=== PATIENT | male | born 1990 | race Caucasian/White ===

== ENCOUNTER 2019-11-08 14:44 | Inpatient (IN) | payer OTHER ==
--- NOTE | 2019-11-08 15:05 | BHS.RME ---
Substance Use & Tx History - Substance Use History Benzodiazepines Substance amount: Xanax 10-15 mg Frequency of use: Daily Substance route: Oral Date of Last Use: 11/07/19 Alcohol Substance amount: 2 pints Vodka Frequency of use: Daily Substance route: Oral Date of Last Use: 11/06/19 Cocaine (Crack) Substance amount: $40-80. Frequency of use: Daily Substance route: Smoking Date of Last Use: 11/07/19 Physical/Psych/Mental Status - Behavior Eye Contact: Normal - Cooperativeness Cooperativeness: Cooperative - Thinking Thought Processes: Tight Thought content: Future oriented - Physical Health Problems Is patient presently having any pain?: No Does patient presently have any injuries (include location): No Does patient currently have a fever: No Is patient : No CIWA Nausea/Vomitin-No Nausea/No Vomiting Muscle Tremors: 4-Moderate,w/Arms Extend Anxiety: 3 Agitation: 3 Paroxysmal Sweats: 1-Minimal Palms Moist Orientation: 0-Oriented Tacttile Disturbances: 0-None Auditory Disturbances: 0-None Visual Disturbances: 0-None Headache: 0-None Present CIWA-Ar Total Score: 11
[2019-11-08 17:27] VITALS: BMI 23.6
--- NOTE | 2019-11-08 17:36 | HP ---
CIWA Score Nausea/Vomitin-Mild Nausea/No Vomiting Muscle Tremors: 2 Anxiety: 3 Agitation: 3 Paroxysmal Sweats: No Perspiration Orientation: 0-Oriented Tacttile Disturbances: 0-None Auditory Disturbances: 0-None Visual Disturbances: 0-None Headache: 2-Mild CIWA-Ar Total Score: 11 - Admission Criteria OASAS Guidelines: Admission for Medically Managed Detox: Requires at least one of the followin. CIWA greater than 12 2. Seizures within the past 24 hours 3. Delirium tremens within the past 24 hours 4. Hallucinations within the past 24 hours 5. Acute intervention needed for co occurring medical disorder 6. Acute intervention needed for co occurring psychiatric disorder 7. Severe withdrawal that cannot be handled at a lower level of care (continued vomiting, continued diarrhea, abnormal vital signs) requiring intravenous medication and/or fluids 8. Admitting History and Physical - Smoking History Smoking history: Current every day smoker Have you smoked in the past 12 months: Yes Aproximately how many cigarettes per day: 10 Admission [facility] Allergies/Adverse Reactions: Allergies Allergy/AdvReac Type Severity Reaction Status Date / Time chlordiazepoxide Allergy Intermediate Hives Verified 11/08/19 17:56 [From Librium] History of Present Illness: This report was requested by: Gladis Luque | Reference #: [id number] Others' Prescriptions Patient Name: Jian Key Date: 1990 Address: [address] [place] [address] Sex: Male Rx Written Rx Dispensed Drug Quantity Days Supply Prescriber Name 03/28/2019 03/28/2019 clonazepam 2 mg tablet 10 5 Jian Arellano Patient Name: Jian Falcon Date: 1990 Address: [address] [place] [address] Sex: Male Rx Written Rx Dispensed Drug Quantity Days Supply Prescriber Name 12/12/2018 12/12/2018 oxycodone-acetaminophen 5-325 mg tablet 12 3 Isaias Castañeda DDS 28 y.o. male reports benzo use 10-15 mg/day x " months " , latest use yesterday , reports seizure if not taking xanax . mmtp x 1 year [facility] latest dose today , states program aware of pt seeking detox . cocaine : 80$ /day via smoking heroin via inhalation x 5 years , first age of use 20 - oxycodone cannabis - since age 17 etoh - since age 17 , claims 2 pints vodka / day , starts drinking in the afternoon , had seizure 1 yr ago , taken to [facility] reports Gabapentin for mmod disorder, anxiety Seroquel PMHX ;denies PSHX : denies denies SI / HI tobacco : 1/2 ppd requesting nrt w/ gum finances habit through illicit activities no children homeless , unemployed Exam Limitations: No Limitations - Review of Systems Constitutional: Loss of Appetite, Unintentional Wgt. Loss (claims 30 lbs wt loss since May 2019) EENT: reports: No Symptoms Reported Respiratory: reports: No Symptoms reported Cardiac: reports: No Symptoms Reported GI: reports: Diarrhea, Nausea, Poor Appetite, Abdominal cramping : reports: No Symptoms Reported Musculoskeletal: reports: No Symptoms Reported Integumentary: reports: No Symptoms Reported Neuro: reports: Headache Endocrine: reports: No Symptoms Reported Hematology: reports: No Symptoms Reported Psychiatric: reports: Orientated x3, Agitated, Anxious Patient History - Patient Medical History Hx Asthma: No Hx Chronic Obstructive Pulmonary Disease (COPD): No Hx Cardiac Disorders: No Hx Hypertension: No Hx Seizures: Yes (2016 r/t Benzo w/drawal) Hx Diabetes: No Hx Gastrointestinal Disorders: No Hx Genitourinary Disorders: No Hx Sexually Transmitted Disorders: No Hx Renal Disease (ESRD): No Hx Depression: Yes Hx Suicide Attempt: No Hx Schizophrenia: No - Patient Surgical History Past Surgical History: No Hx Neurologic Surgery: No Hx Cataract Extraction: No Hx Cardiac Surgery: No Hx Lung Surgery: No Hx Breast Surgery: No Hx Breast Biopsy: No Hx Abdominal Surgery: No Hx Appendectomy: No Hx Cholecystectomy: No Hx Genitourinary Surgery: No Hx Section: No Hx Orthopedic Surgery: No Anesthesia Reaction: No - PPD History Previous Implant?: Yes Documented Results: Negative w/o proof Implanted On Prior R Admission?: No - Reproductive History Patient : No - Smoking Cessation Smoking history: Current every day smoker Have you smoked in the past 12 months: Yes Aproximately how many cigarettes per day: 10 Hx Chewing Tobacco Use: No Initiated information on smoking cessation: Yes 'Breaking Loose' booklet given: 11/08/19 - Substances abused Alcohol Substance route: Oral Frequency: Daily Amount used: 2 pints of vodka Age of first use: 17 Date of last use: 11/06/19 Alprazolam (Xanax) Substance route: Oral Frequency: Daily Amount used: 10-15mg daily Age of first use: 20 Date of last use: 11/07/19 Crack Substance route: Smoking Frequency: Daily Amount used: $80/day Age of first use: 21 Date of last use: 10/31/19 Admission Physical Exam BHS - Vital Signs Vital Signs: Vital Signs - 24 hr 11/08/19 17:22 Temperature 96.7 F L Pulse Rate 76 Respiratory 16 Rate Blood Pressure 126/85 - Physical General Appearance: Yes: Mild Distress, Anxious HEENTM: Yes: EOMI, Hearing grossly Normal, Normocephalic, Normal Voice Respiratory: Yes: Chest Non-Tender, Lungs Clear, Normal Breath Sounds, No Respiratory Distress, No Accessory Muscle Use Neck: Yes: No masses,lesions,Nodules, Trachea in good position Cardiology: Yes: Regular Rhythm, Regular Rate, S1, S2 Abdominal: Yes: Non Tender, Soft Musculoskeletal: Yes: Gait Steady Extremities: Yes: Normal Range of Motion, Non-Tender Neurological: Yes: Fully Oriented, Alert, Motor Strength 5/5, Normal Mood/Affect Integumentary: Yes: Warm - Diagnostic (1) Alcohol abuse Current Visit: Yes Status: Chronic (2) Nicotine dependence Current Visit: Yes Status: Chronic (3) Opioid dependence on agonist therapy Current Visit: Yes Status: Chronic (4) Cocaine dependence Current Visit: Yes Status: Chronic Qualifiers: Substance use status: uncomplicated Qualified Code(s): F14.20 - Cocaine dependence, uncomplicated Breathalyzer - Breathalyzer Breathalyzer: 0 Urine Drug Screen - Test Device Lot number: [id number] Expiration date: 08/18/21 - Control Is test valid?: Yes - Results Drug screen NEGATIVE: No Urine drug screen results: THC-Marijuana, MARYBEL-Cocaine, MTD-Methadone Inpatient Rehab Admission - Rehab Decision to Admit Inpatient rehab admission?: No
[2019-11-08] MEDS ORDERED: BISMUTH SUBSALICYLATE 524 MG/30 ML UD PO PRN (17:43)
[2019-11-08] MEDS ORDERED: MELATONIN 5 MG TABLETS PO PRN (17:43)
[2019-11-08] MEDS ORDERED: MAG HYDROX/AL HYDROX/SIMETH 30 ML UNIT-DOSE CUP PO PRN (17:43)
[2019-11-08] MEDS ORDERED: IBUPROFEN 400 MG TABLET (FP) PO PRN (17:43)
[2019-11-08] MEDS ORDERED: MAGNESIUM HYDROX 2400MG/30ML ORAL SUSPENSION 30 ML CUP PO PRN (17:43)
[2019-11-08] MEDS ORDERED: hydrOXYzine PAMOATE 25 MG CAPSULE (FP) PO PRN (17:43)
[2019-11-08] MEDS ORDERED: METHOCARBAMOL 500 MG TABLET PO PRN (17:43)
[2019-11-08] MEDS ORDERED: MENTHOL/PHENOL 1 EACH UD MM PRN (17:43)
[2019-11-08] MEDS ORDERED: ACETAMINOPHEN 325 MG TABLET (FP) PO PRN ×2 (17:43)
[2019-11-08] MEDS ORDERED: MAGNESIUM CITRATE 300 ML BOTTLE PO PRN (17:43)
[2019-11-08] MEDS ORDERED: diazePAM 5 MG TABLET PO ONE (17:45)
[2019-11-08] MEDS: diazePAM 5 MG TABLET PO SCH (22:27)
[2019-11-08] MEDS: THIAMINE HCL 100 MG TABLET (FP) PO SCH (22:27)
[2019-11-08] MEDS: diazePAM 5 MG TABLET PO PRN (23:52)
[2019-11-09] MEDS: diazePAM 5 MG TABLET PO SCH ×3 (07:00→22:26)
[2019-11-09] MEDS ORDERED: METHADONE HCL 10 MG TABLET PO ONE (09:55)
[2019-11-09] MEDS ORDERED: METHADONE 80 MG, METHADONE 20 MG PO ONE (10:20)
[2019-11-09] MEDS: PRENATAL VITAMINS W/ FOLIC ACID TABLET (FP) PO SCH (10:23)
--- NOTE | 2019-11-09 10:23 | PN ---
[facility] CIWA - CIWA Score Nausea/Vomitin-Mild Nausea/No Vomiting Muscle Tremors: 2 Anxiety: 2 Agitation: 2 Paroxysmal Sweats: 1-Minimal Palms Moist Orientation: 0-Oriented Tacttile Disturbances: 1-Very Mild Itch/Numbness Auditory Disturbances: 0-None Visual Disturbances: 0-None Headache: 1-Very Mild CIWA-Ar Total Score: 10 BHS Progress Note (SOAP) Subjective: alert,irritable,anxious,interrupted sleep,pain in the body and back Objective: 11/09/19 10:22 Vital Signs Temperature 97.4 F L 11/09/19 08:40 Pulse Rate 64 11/09/19 08:40 Respiratory Rate 18 11/09/19 08:40 Blood Pressure 106/61 11/09/19 08:40 O2 Sat by Pulse Oximetry (%) labs pending Assessment: 11/09/19 10:22 withdrawal symptom Plan: continue detox valium regimen,mmtp 100 mgs/day,verified by RN,ordered
[2019-11-09] MEDS: diazePAM 5 MG TABLET PO PRN ×3 (10:24→20:57)
[2019-11-09] MEDS: NICOTINE POLACRILEX 2 MG GUM BUC PRN ×3 (10:24→22:30)
[2019-11-09] MEDS ORDERED: METHADONE HCL 40 MG DISPERSABLE TABLET ONE (10:25)
[2019-11-09] MEDS ORDERED: METHADONE HCL 10 MG TABLET ONE (10:25)
--- NOTE | 2019-11-09 10:36 | EKG ---
Test Reason : Blood Pressure : / mmHG Vent. Rate : 049 BPM Atrial Rate : 049 BPM P-R Int : 144 ms QRS Dur : 090 ms QT Int : 442 ms P-R-T Axes : -11 039 056 degrees QTc Int : 399 ms SINUS BRADYCARDIA INCOMPLETE RBBB NO PREVIOUS ECGS AVAILABLE Confirmed by MARLENY REESE MD ([id number]) on 11/09/2019 10:35:28 AM Referred By: BRIGETTE Confirmed By:MARLENY REESE MD
[2019-11-09 10:40] LABS: HEMATOCRIT 37.8 % (35.4-49); HEMOGLOBIN 12.8 GM/dL (11.7-16.9); MCH 28.3 pg (25.7-33.7); MCHC 33.7 g/dl (32.0-35.9); MEAN CELL VOLUME 83.9 fl (80-96); MEAN PLT VOLUME 7.9 fl (7.5-11.1); PLATELET COUNT 281 K/MM3 (134-434); RBC 4.51 M/mm3 (4.00-5.60); WHITE BLOOD COUNT 5.8 K/mm3 (4.0-10.0)
[2019-11-09 10:51] LABS: ALBUMIN 3.8 g/dl (3.4-5.0); BILIRUBIN,TOTAL 0.4 mg/dL (0.2-1); BLOOD UREA NITROGEN 16.8 mg/dL (7-18); CALCIUM 9.2 mg/dL (8.5-10.1); CREATININE 0.9 mg/dL (0.55-1.3); POTASSIUM 4.5 mmol/L (3.5-5.1); TOT PROT 7.3 g/dl (6.4-8.2)
--- NOTE | 2019-11-09 13:30 | CONSULT ---
[facility] Psychiatric Consult - Data Date of interview: 11/09/19 Admission source: [facility] Identifying data: Patient is approached at bedside. Declines to be interviewed. " I am very tired. I need some sleep. Come back tomorrow." Psychiatric examination is deferred at patient's request. Nursing staff is made aware.
[2019-11-09] MEDS: THIAMINE HCL 100 MG TABLET (FP) PO SCH (22:26)
[2019-11-09] MEDS ORDERED: QUEtiapine FUMARATE 50 MG TABLET PO ONE (23:00)
[2019-11-10] MEDS ORDERED: METHADONE HCL 10 MG TABLET ONE (05:56)
[2019-11-10] MEDS ORDERED: METHADONE HCL 40 MG DISPERSABLE TABLET ONE (05:56)
[2019-11-10] MEDS ORDERED: METHADONE HCL 10 MG TABLET PO SCH (06:00)
[2019-11-10] MEDS: METHADONE 80 MG, METHADONE 20 MG PO SCH (06:05)
[2019-11-10] MEDS: diazePAM 5 MG TABLET PO SCH ×2 (06:05→17:32)
[2019-11-10] MEDS: NICOTINE POLACRILEX 2 MG GUM BUC PRN ×3 (06:10→22:14)
[2019-11-10] MEDS: diazePAM 5 MG TABLET PO PRN ×3 (07:56→20:48)
[2019-11-10] MEDS: PRENATAL VITAMINS W/ FOLIC ACID TABLET (FP) PO SCH (11:08)
--- NOTE | 2019-11-10 11:13 | PN ---
[facility] CIWA - CIWA Score Nausea/Vomitin-No Nausea/No Vomiting Muscle Tremors: None Anxiety: 2 Agitation: 0-Normal Activity Paroxysmal Sweats: 2 Orientation: 0-Oriented Tacttile Disturbances: 0-None Auditory Disturbances: 0-None Visual Disturbances: 0-None Headache: 0-None Present CIWA-Ar Total Score: 4 BHS Progress Note (SOAP) Subjective: c/o mild withdrawal symptoms. Objective: 11/10/19 11:12 Vital Signs 11/10/19 11/10/19 11/10/19 03:30 07:46 08:51 Temperature 97.9 F 97.4 F L Pulse Rate 63 67 Respiratory 18 16 18 Rate Blood Pressure 107/66 106/63 Laboratory Last Values WBC 5.8 K/mm3 (4.0-10.0) 11/09/19 07:40 RBC 4.51 M/mm3 (4.00-5.60) 11/09/19 07:40 Hgb 12.8 GM/dL (11.7-16.9) 11/09/19 07:40 Hct 37.8 % (35.4-49) 11/09/19 07:40 MCV 83.9 fl (80-96) 11/09/19 07:40 MCH 28.3 pg (25.7-33.7) 11/09/19 07:40 MCHC 33.7 g/dl (32.0-35.9) 11/09/19 07:40 RDW 13.0 % (11.9-15.9) 11/09/19 07:40 Plt Count 281 K/MM3 (134-434) 11/09/19 07:40 MPV 7.9 fl (7.5-11.1) 11/09/19 07:40 Sodium 140 mmol/L (136-145) 11/09/19 07:40 Potassium 4.5 mmol/L (3.5-5.1) 11/09/19 07:40 Chloride 103 mmol/L (98-107) 11/09/19 07:40 Carbon Dioxide 34 mmol/L (21-32) H 11/09/19 07:40 Anion Gap 4 MMOL/L (8-16) L 11/09/19 07:40 BUN 16.8 mg/dL (7-18) 11/09/19 07:40 Creatinine 0.9 mg/dL (0.55-1.3) 11/09/19 07:40 Est GFR (CKD-EPI)AfAm 133.30 11/09/19 07:40 Est GFR (CKD-EPI)NonAf 115.01 11/09/19 07:40 Random Glucose 92 mg/dL (74-106) 11/09/19 07:40 Calcium 9.2 mg/dL (8.5-10.1) 11/09/19 07:40 Total Bilirubin 0.4 mg/dL (0.2-1) 11/09/19 07:40 AST 12 U/L (15-37) L 11/09/19 07:40 ALT 21 U/L (13-61) 11/09/19 07:40 Alkaline Phosphatase 97 U/L (45-117) 11/09/19 07:40 Total Protein 7.3 g/dl (6.4-8.2) 11/09/19 07:40 Albumin 3.8 g/dl (3.4-5.0) 11/09/19 07:40 RPR Titer Nonreactive (NONREACTIVE) 11/09/19 07:40 Labs noted. Assessment: 11/10/19 11:12 AOX3, in no acute respiratory distress. Full ROM, ambulating in the unit. Mild Withdrawal symptoms. For d/c tomorrow. Plan: continue detox. D/C in AM.
--- NOTE | 2019-11-10 15:30 | CONSULT ---
[facility] Psychiatric Consult - Data Date of interview: 11/10/19 Admission source: [facility] Identifying data: First admission to [facility] for this 28 y/o male self-referred for detoxification treatment. OSCAR issues : alcohol, cocaine, cannabis, benzodiazepine (xanax), nicotine. Patient is single, no dependents, homeless (senior care), unemployed and supported on undisclosed means. Substance Abuse History: Discussed with the patient. Details in current [facility] report as follows : Smoking history: Current every day smoker. Have you smoked in the past 12 months: Yes. Aproximately how many cigarettes per day: 10. Hx Chewing Tobacco Use: No. Initiated information on smoking cessation: Yes. ' Breaking Loose' booklet given: 11/08/19. - Substances abused. Alcohol. Substance route: Oral. Frequency: Daily. Amount used: 2 pints of vodka. Age of first use: 17. Date of last use: 11/06/19. Alprazolam (Xanax). Substance route: Oral. Frequency: Daily. Amount used: 10-15mg daily. Age of first use: 20. Date of last use: 11/07/19. Crack. Substance route: Smoking. Frequency: Daily. Amount used: $80/day. Age of first use: 21. Date of last use: 10/31/19 Medical History: Distant history of withdrawal-related seizures. Patient endorses good general health. Psychiatric History: Patient denies history of psychiatric hospitalizations. He indicates that he has been, sporadically, seeing the psychiatrist at his senior care for scripts for gabapentin + seroquel. Mr Falcon claims the diagnoses of MDD and Anxiety Disorder. " I usually get refills from detox and rehab programs." Patient is currently on methadone maintenance (100 mg/day) at [facility] in the [place]. Denies history of suicide attempts. Physical/Sexual Abuse/Trauma History: Patient denies history of abuse. Additional Comment: Urine drug screen results: THC-Marijuana, MARYBEL-Cocaine, MTD- Methadone. Noted. Mental Status Exam - Mental Status Exam Alert and Oriented to: Time, Place, Person Cognitive Function: Good Patient Appearance: Well Groomed Mood: Hopeful, Euthymic Affect: Appropriate, Normal Range Patient Behavior: Fatigued, Appropriate, Cooperative Speech Pattern: Clear, Appropriate Voice Loudness: Normal Thought Process: Intact, Goal Oriented Thought Disorder: Not Present Hallucinations: Denies Suicidal Ideation: Denies Homicidal Ideation: Denies Insight/Judgement: Poor Sleep: Poorly, Difficulty falling asleep Appetite: Good Gait/Station: Normal Psychiatric Findings - Problem List ([place] 1, 2,3) (1) Alcohol use disorder Current Visit: Yes Status: Chronic (2) Opioid dependence on agonist therapy Current Visit: Yes Status: Chronic (3) Cocaine dependence Current Visit: Yes Status: Chronic Qualifiers: Substance use status: uncomplicated Qualified Code(s): F14.20 - Cocaine dependence, uncomplicated (4) Nicotine dependence Current Visit: Yes Status: Chronic (5) Substance induced mood disorder Current Visit: Yes Status: Chronic (6) Insomnia Current Visit: Yes Status: Chronic (7) Anxiety disorder Current Visit: Yes Status: Chronic Comment: By history. (8) Non-compliance Current Visit: Yes Status: Chronic - Initial Treatment Plan Initial Treatment Plan: Psychoeducation. Sleep hygiene. Detoxification. Support. AA/NA meetings. Medications resumed at patient's request : seroquel 100 mg po hs + gabapentin 200 mg po tid. Side effects/benefits of both drugs are discussed with the patient. Mr Falcon has expressed his agreement with this plan of care. Gave his consent (verbal) to MD. Hollis.
[2019-11-10] MEDS ORDERED: QUEtiapine FUMARATE 100 MG TABLET (FP) PO SCH (22:00)
[2019-11-10] MEDS: GABAPENTIN 100 MG CAPSULE PO SCH (22:13)
[2019-11-10] MEDS: THIAMINE HCL 100 MG TABLET (FP) PO SCH (22:13)
[2019-11-11] MEDS ORDERED: METHADONE HCL 10 MG TABLET ONE (04:23)
[2019-11-11] MEDS ORDERED: METHADONE HCL 40 MG DISPERSABLE TABLET ONE (04:23)
[2019-11-11] MEDS: METHADONE 80 MG, METHADONE 20 MG PO SCH (05:58)
[2019-11-11] MEDS: GABAPENTIN 100 MG CAPSULE PO SCH (05:58)
[2019-11-11] MEDS ORDERED: diazePAM 5 MG TABLET PO ONE (06:00)
[2019-11-11] MEDS: diazePAM 5 MG TABLET PO PRN (08:48)
[2019-11-11] MEDS: NICOTINE POLACRILEX 2 MG GUM BUC PRN (08:50)
[2019-11-11 09:23] VITALS: BP 118/62; PULSE 62; TEMP 98.1
--- NOTE | 2019-11-11 10:13 | DS ---
[facility] Detox Discharge Summary Admission Date: 11/08/19 Discharge Date: 11/11/19 - History Present History: Alcohol Dependence, Sedative Dependence Additional Comments: 28 years old male admitted on 11/08/19 for alcohol and benzo withdrawal sx management treated with valium detox regiment Mr Falcon has completed the valium regiment and is tolerated well refuses to go to the behavior and psyshococial therapies groups and meetings while in detox rejects [facility] admission today encourage the patient to attend community self help support groups and meetings as part of chemical dependent recovery strong recommend the patient to follow up with community health service for medical and mental issues seen by psychiatrist resume seroquel and gabapentin patient may return to methadone maintenance program for therapeutic groups and meetings respiratory clear lungs bilaterally on auscultation extremities full range of motion skin warm and dry Pertinent Past History: time for discharge 48 minutes patient does not want to leave the detox today "I want to stay here longer" encourage [facility] admission is medically supervised environment to improve coping mechanism and positive supportive network establishment - Physical Exam Results Vital Signs: Vital Signs Temperature 98.1 F 11/11/19 08:35 Pulse Rate 62 11/11/19 08:35 Respiratory Rate 18 11/11/19 08:35 Blood Pressure 118/62 11/11/19 08:35 O2 Sat by Pulse Oximetry (%) Pertinent Admission Physical Exam Findings: alcohol and benzo withdrawal Vital Signs Temperature 98.1 F 11/11/19 08:35 Pulse Rate 62 11/11/19 08:35 Respiratory Rate 18 11/11/19 08:35 Blood Pressure 118/62 11/11/19 08:35 O2 Sat by Pulse Oximetry (%) Laboratory Last Values WBC 5.8 K/mm3 (4.0-10.0) 11/09/19 07:40 RBC 4.51 M/mm3 (4.00-5.60) 11/09/19 07:40 Hgb 12.8 GM/dL (11.7-16.9) 11/09/19 07:40 Hct 37.8 % (35.4-49) 11/09/19 07:40 MCV 83.9 fl (80-96) 11/09/19 07:40 MCH 28.3 pg (25.7-33.7) 11/09/19 07:40 MCHC 33.7 g/dl (32.0-35.9) 11/09/19 07:40 RDW 13.0 % (11.9-15.9) 11/09/19 07:40 Plt Count 281 K/MM3 (134-434) 11/09/19 07:40 MPV 7.9 fl (7.5-11.1) 11/09/19 07:40 Sodium 140 mmol/L (136-145) 11/09/19 07:40 Potassium 4.5 mmol/L (3.5-5.1) 11/09/19 07:40 Chloride 103 mmol/L (98-107) 11/09/19 07:40 Carbon Dioxide 34 mmol/L (21-32) H 11/09/19 07:40 Anion Gap 4 MMOL/L (8-16) L 11/09/19 07:40 BUN 16.8 mg/dL (7-18) 11/09/19 07:40 Creatinine 0.9 mg/dL (0.55-1.3) 11/09/19 07:40 Est GFR (CKD-EPI)AfAm 133.30 11/09/19 07:40 Est GFR (CKD-EPI)NonAf 115.01 11/09/19 07:40 Random Glucose 92 mg/dL (74-106) 11/09/19 07:40 Calcium 9.2 mg/dL (8.5-10.1) 11/09/19 07:40 Total Bilirubin 0.4 mg/dL (0.2-1) 11/09/19 07:40 AST 12 U/L (15-37) L 11/09/19 07:40 ALT 21 U/L (13-61) 11/09/19 07:40 Alkaline Phosphatase 97 U/L (45-117) 11/09/19 07:40 Total Protein 7.3 g/dl (6.4-8.2) 11/09/19 07:40 Albumin 3.8 g/dl (3.4-5.0) 11/09/19 07:40 RPR Titer Nonreactive (NONREACTIVE) 11/09/19 07:40 lab noted - Treatment Hospital Course: Detox Protocol Followed, Detoxed Safely, Responded well, Discharged Condition Good, Rehab Referral Accepted Patient has Accepted a Rehab Referral to: [facility] - Medication Discharge Medications: Ambulatory Orders Gabapentin [Gralise] 600 mg PO TID 11/08/19 Quetiapine Fumarate [Seroquel -] 100 mg PO HS 11/08/19 - Diagnosis (1) Alcohol dependence, uncomplicated Current Visit: Yes Status: Acute (2) Methadone maintenance therapy patient Current Visit: Yes Status: Chronic (3) Nicotine dependence Current Visit: Yes Status: Acute Qualifiers: Nicotine product type: cigarettes Substance use status: in withdrawal Qualified Code(s): F17.213 - Nicotine dependence, cigarettes, with withdrawal (4) Substance induced mood disorder Current Visit: Yes Status: Suspected - AMA Did Patient Leave Against Medical Advice: No CIWA Score - CIWA Score Nausea/Vomitin-No Nausea/No Vomiting Muscle Tremors: None Anxiety: 1-Mildly Anxious Agitation: 0-Normal Activity Paroxysmal Sweats: 1-Minimal Palms Moist Orientation: 0-Oriented Tacttile Disturbances: 0-None Auditory Disturbances: 0-None Visual Disturbances: 0-None Headache: 0-None Present CIWA-Ar Total Score: 2
[2019-11-11] MEDS: PRENATAL VITAMINS W/ FOLIC ACID TABLET (FP) PO SCH (10:35)
== END 2019-11-11 11:34 | disposition other institution (70) | DRG 773 ==
LOC: YASAS 14:44 → Y3N 17:55
PROVIDERS: ADMIT Allergy & Immunology; ATTEND Allergy & Immunology
PROC: HZ2ZZZZ Detoxification Services for Substance Abuse Treatment (ICD-10-PCS; principal; 2019-11-08)
DX: F10.230 Alcohol dependence with withdrawal, uncomplicated (principal); F13.230 Sedative, hypnotic or anxiolytic dependence with withdrawal, uncomplicated; F11.20 Opioid dependence, uncomplicated; F14.20 Cocaine dependence, uncomplicated; F17.213 Nicotine dependence, cigarettes, with withdrawal; F19.24 Other psychoactive substance dependence with psychoactive substance-induced mood disorder; F32.9 Major depressive disorder, single episode, unspecified; F41.8 Other specified anxiety disorders; G47.00 Insomnia, unspecified; Z86.69 Personal history of other diseases of the nervous system and sense organs; Z88.8 Allergy status to other drugs, medicaments and biological substances; Z91.19 Patient's noncompliance with other medical treatment and regimen; Z59.0 Homelessness
CPT/HCPCS: 36415; 80053; 85027; 86593; 93005; 93010

== ENCOUNTER 2020-03-14 15:02 | Inpatient (IN) | payer OTHER ==
--- NOTE | 2020-03-14 15:38 | BHS.RME ---
Substance Use & Tx History - Substance Use History Benzodiazepines Substance amount: xanax 15-20 mg daily Frequency of use: Daily Substance route: Oral Date of Last Use: 03/12/20 Alcohol Substance amount: 2-3 pts Vodka Frequency of use: Daily Substance route: Oral Date of Last Use: 03/12/20 Cocaine-Crack Substance amount: $50-1 gm Frequency of use: Daily Substance route: Smoking - Last Treatment Date of last treatment: 11/11/19 to 12/07/19 Treatment type: Substance Use Disorder (OSCAR) Where was last treatment: ER (ad[facility] from [facility] Physical/Psych/Mental Status - Behavior General Behavior: Increased activity (restlessness, agitation) Eye Contact: Decreased - Cooperativeness Cooperativeness: Cooperative - Thinking Thought Processes: Logical Thought content: Future oriented - Physical Health Problems Is patient presently having any pain?: Yes (legs hurt/whole body) Does patient presently have any injuries (include location): Yes (forehead abrasion-"that's from my hat") Does patient currently have a fever: No Is patient : No CIWA Nausea/Vomitin (n/v/d) Muscle Tremors: 4-Moderate,w/Arms Extend Anxiety: 4-Mod. Anxious/Guarded Agitation: 5 Paroxysmal Sweats: 1-Minimal Palms Moist Orientation: 0-Oriented Tacttile Disturbances: 0-None Auditory Disturbances: 0-None Visual Disturbances: 0-None Headache: 2-Mild CIWA-Ar Total Score: 21 Treatment Recommendation - Level of Care Level of Care: Acute Medical (Benzo taper Pt allergy to Librium)
--- NOTE | 2020-03-14 16:47 | HP ---
CIWA Score Nausea/Vomitin-Int. Nausea w/Dry Heave (n/v/d) Muscle Tremors: 4-Moderate,w/Arms Extend Anxiety: 4-Mod. Anxious/Guarded Agitation: 3 Paroxysmal Sweats: 2 Orientation: 0-Oriented Tacttile Disturbances: 0-None Auditory Disturbances: 0-None Visual Disturbances: 0-None Headache: 3-Moderate CIWA-Ar Total Score: 20 - Admission Criteria OASAS Guidelines: Admission for Medically Managed Detox: Requires at least one of the followin. CIWA greater than 12 2. Seizures within the past 24 hours 3. Delirium tremens within the past 24 hours 4. Hallucinations within the past 24 hours 5. Acute intervention needed for co occurring medical disorder 6. Acute intervention needed for co occurring psychiatric disorder 7. Severe withdrawal that cannot be handled at a lower level of care (continued vomiting, continued diarrhea, abnormal vital signs) requiring intravenous medication and/or fluids 8. Admitting History and Physical - Past Medical History Psych: Yes: Addictions, Anxiety, Depression - Smoking History Smoking history: Current every day smoker Have you smoked in the past 12 months: Yes Aproximately how many cigarettes per day: 10 - Social History History of Recent Travel: No Admission [facility] Chief Complaint: Benzodiazepine withdrawal symptoms Allergies/Adverse Reactions: Allergies Allergy/AdvReac Type Severity Reaction Status Date / Time chlordiazepoxide Allergy Intermediate Hives Verified 03/14/20 17:27 [From Librium] History of Present Illness: 29 years old male with 9 years history of benzodiazepine dependence ( since age 20 years old ) is seeking admission to detox. Patient's last admission was for the period 11/11/2019 - 12/07/2019 and he reports 10 months of sobriety. He states that he uses street benzodiazepine 15-20mg tablet oral daily, last use was on 11/14/2019. Patient was referred from [facility] emergency room for detoxification. He has medical history of alcohol related seizures and psych. history of anxiety and depression. He denies suicidal ideation at this time. He denies blackouts and drug overdose. He is unemployed, homeless and has a legal pending court issue. He is on methadone 100mg tablet oral daily with [facility]. Dose is yet to be confirmed by the nurse Exam Limitations: No Limitations - Ebola screening Have you traveled outside of the country in the last 21 days: No Have you had contact with anyone from an Ebola affected area: No Have you been sick,other than usual withdrawal symptoms: No Do you have a fever: No - Review of Systems Constitutional: Chills, Malaise, Night Sweats EENT: reports: No Symptoms Reported Respiratory: reports: No Symptoms reported Cardiac: reports: No Symptoms Reported GI: reports: Poor Appetite, Poor Fluid Intake, Vomiting, Abdominal cramping : reports: No Symptoms Reported Musculoskeletal: reports: Back Pain, Joint Pain, Muscle Pain Integumentary: reports: Dryness, Flushing Neuro: reports: Headache, Tremors Endocrine: reports: No Symptoms Reported Hematology: reports: No Symptoms Reported Psychiatric: reports: Orientated x3, Anxious, Depressed Other Systems: Reviewed and Negative Patient History - Patient Medical History Hx Anemia: No Hx Asthma: No Hx Chronic Obstructive Pulmonary Disease (COPD): No Hx Cancer: No Hx Cardiac Disorders: No Hx Congestive Heart Failure: No Hx Hypertension: No Hx Hypercholesterolemia: No Hx Pacemaker: No HX Cerebrovascular Accident: No Hx Seizures: Yes (Alcohol related seizures) Hx Dementia: No Hx Diabetes: No Hx Gastrointestinal Disorders: No Hx Liver Disease: No Hx Genitourinary Disorders: No Hx Sexually Transmitted Disorders: No Hx Renal Disease (ESRD): No Hx Thyroid Disease: No Hx Human Immunodeficiency Virus (HIV): No (Negative 2019) Hx Hepatitis C: No Hx Depression: Yes (Denies suicidal ideation at this time) Hx Suicide Attempt: No Hx Schizophrenia: No Other Medical History: Anxiety - Patient Surgical History Past Surgical History: No Anesthesia Reaction: No - PPD History Previous Implant?: Yes Documented Results: Positive w/proof Implanted On Prior [facility] Admission?: Yes Date: 11/10/19 PPD to be Administered?: No - Reproductive History Patient is a Female of Child Bearing Age (11 -55 yrs old): No (Male) - Smoking Cessation Smoking history: Current every day smoker Have you smoked in the past 12 months: Yes Aproximately how many cigarettes per day: 10 Hx Chewing Tobacco Use: No Initiated information on smoking cessation: Yes 'Breaking Loose' booklet given: 03/14/20 - Substance & Tx. History Hx Alcohol Use: Yes Hx Substance Use: Yes Substance Use Type: Alcohol, Prescribed (Methadone) Hx Substance Use Treatment: Yes ([facility]) - Substances abused Alprazolam (Xanax) Substance route: Oral Frequency: Daily Amount used: 15-20mg tablets oral Age of first use: 20 Date of last use: 03/13/20 Crack Substance route: Smoking Frequency: Daily Amount used: 1gm Age of first use: 20 Date of last use: 03/10/20 Alcohol Substance route: Oral Frequency: Daily Amount used: 3 pints of Vodka Age of first use: 16 Date of last use: 03/12/20 Admission Physical Exam [facility] - Physical General Appearance: Yes: Severe Distress, Tremorous, Anxious HEENTM: Yes: Normal ENT Inspection Respiratory: Yes: Lungs Clear, Normal Breath Sounds, No Respiratory Distress Neck: Yes: Within Normal Limits, No masses,lesions,Nodules, Trachea in good position Breast: Yes: Breast Exam Deferred Cardiology: Yes: Within Normal Limits Genitourinary: Yes: Within Normal Limits Back: Yes: Normal Inspection Musculoskeletal: Yes: Back pain, Muscle Pain Extremities: Yes: Tremors Neurological: Yes: Within Normal Limits Integumentary: Yes: Warm Lymphatic: Yes: Within Normal Limits - Diagnostic (1) Sedative, hypnotic or anxiolytic abuse, uncomplicated Current Visit: Yes Status: Acute (2) Depression Current Visit: Yes Status: Chronic Qualifiers: Depression Type: unspecified Qualified Code(s): F32.9 - Major depressive d isorder, single episode, unspecified (3) Alcohol dependence, uncomplicated Current Visit: Yes Status: Chronic (4) Anxiety disorder Current Visit: Yes Status: Chronic Qualifiers: Anxiety disorder type: unspecified anxiety disorder Qualified Code(s): F41.9 - Anxiety disorder, unspecified Comment: By history. (5) Cocaine dependence Current Visit: Yes Status: Chronic Qualifiers: Substance use status: uncomplicated Qualified Code(s): F14.20 - Cocaine dependence, uncomplicated (6) Insomnia Current Visit: Yes Status: Chronic (7) Methadone maintenance therapy patient Current Visit: Yes Status: Chronic (8) Nicotine dependence Current Visit: Yes Status: Chronic Qualifiers: Nicotine product type: cigarettes Substance use status: uncomplicated Qualified Code(s): F17.210 - Nicotine dependence, cigarettes, uncomplicated Cleared for Admission [facility] - Detox or Rehab [facility] Level of Care: Medically Managed Detox Regimen/Protocol: Valium Claeared for Rehab Admission: No Breathalyzer - Breathalyzer Breathalyzer: 0 Urine Drug Screen - Test Device Lot number: [id number] Expiration date: 05/19/21 - Control Is test valid?: Yes - Results Drug screen NEGATIVE: No Urine drug screen results: MTD-Methadone, BZO-Benzodiazepines Inpatient Rehab Admission - Rehab Decision to Admit Inpatient rehab admission?: No
[2020-03-14] MEDS ORDERED: MAG HYDROX/AL HYDROX/SIMETH 30 ML UNIT-DOSE CUP PO PRN (17:28)
[2020-03-14] MEDS ORDERED: ACETAMINOPHEN 325 MG TABLET (FP) PO PRN ×2 (17:28)
[2020-03-14] MEDS ORDERED: MAGNESIUM HYDROX 2400MG/30ML ORAL SUSPENSION 30 ML CUP PO PRN (17:28)
[2020-03-14] MEDS ORDERED: ONDANSETRON *ODT* 4 MG TABLET SL ONE (17:28)
[2020-03-14] MEDS ORDERED: MAGNESIUM CITRATE 300 ML BOTTLE PO PRN (17:28)
[2020-03-14] MEDS ORDERED: METHOCARBAMOL 500 MG TABLET PO PRN (17:28)
[2020-03-14] MEDS ORDERED: MENTHOL/PHENOL 1 EACH UD MM PRN (17:28)
[2020-03-14] MEDS ORDERED: BISMUTH SUBSALICYLATE 524 MG/30 ML UD PO PRN (17:28)
[2020-03-14] MEDS ORDERED: hydrOXYzine PAMOATE 25 MG CAPSULE (FP) PO PRN (17:28)
[2020-03-14 17:51] VITALS: BMI 27.2
[2020-03-14] MEDS: diazePAM 5 MG TABLET PO PRN (19:12)
[2020-03-14] MEDS: NICOTINE POLACRILEX 2 MG GUM BUC PRN (19:15)
[2020-03-14] MEDS: diazePAM 5 MG TABLET PO SCH (22:27)
[2020-03-14] MEDS: MELATONIN 5 MG TABLETS PO SCH (22:27)
[2020-03-14] MEDS: THIAMINE HCL 100 MG TABLET (FP) PO SCH (22:27)
[2020-03-15] MEDS: IBUPROFEN 400 MG TABLET (FP) PO PRN (06:06)
[2020-03-15] MEDS: diazePAM 5 MG TABLET PO PRN ×4 (06:07→18:24)
[2020-03-15] MEDS: NICOTINE POLACRILEX 2 MG GUM BUC PRN ×2 (06:10→13:07)
[2020-03-15] MEDS: diazePAM 5 MG TABLET PO SCH ×3 (06:15→22:12)
[2020-03-15] MEDS ORDERED: METHADONE HCL 10 MG TABLET PO SCH (09:15)
[2020-03-15] MEDS ORDERED: METHADONE HCL 10 MG TABLET ONE (09:31)
[2020-03-15] MEDS ORDERED: METHADONE HCL 40 MG DISPERSABLE TABLET ONE (09:32)
[2020-03-15] MEDS: METHADONE 80 MG, METHADONE 20 MG PO SCH (09:36)
[2020-03-15] MEDS: NICOTINE 21 MG/24 HOURS TOPICAL PATCH TD SCH (09:38)
[2020-03-15] MEDS: PRENATAL VITAMINS W/ FOLIC ACID TABLET (FP) PO SCH (10:41)
--- NOTE | 2020-03-15 13:30 | CONSULT ---
[facility] Psychiatric Consult - Data Date of interview: 03/15/20 Admission source: [facility] Identifying data: Patient is a 29 year old single [place] male, without children, unemployed, and currently homeless. This is one of multiple admissions for patient. Patient admitted to for alcohol and benzodiazepine dependence. Substance Abuse History: - Smoking Cessation. Smoking history: Current every day smoker. Have you smoked in the past 12 months: Yes. Aproximately how many cigarettes per day: 10. Hx Chewing Tobacco Use: No. Initiated information on smoking cessation: Yes. 'Breaking Loose' booklet given: 03/14/20. - Substance & Tx. History. Hx Alcohol Use: Yes. Hx Substance Use: Yes. Substance Use Type: Alcohol, Prescribed (Methadone). Hx Substance Use Treatment: Yes ([facility]). - Substances abused. Alprazolam (Xanax). Substance route: Oral. Frequency: Daily. Amount used: 15-20mg tablets oral. Age of first use: 20. Date of last use: 03/13/20. Crack. Substance route: Smoking. Frequency: Daily. Amount used: 1gm. Age of first use: 20. Date of last use: 03/10/20. Alcohol. Substance route: Oral. Frequency: Daily. Amount used: 3 pints of Vodka. Age of first use: 16. Date of last use: 03/12/20 Medical History: Distant history of withdrawal-related seizures. Psychiatric History: Mr. Falcon denies history of psychiatric hospitalizations and suicide attempt. He reports psychiatric treatment when admitted to various detox/rehab facilities. Reports a diagnosis of MDD and anxiety disorder. Patient seen by Dr. Mcdowell on 11/13/19 and was prescribed gabapentin 300mg TID + Seroquel 100mg HS. After discharge from current facility on 11/2019 patient reports being admitted to [facility] and was prescribed Wellbutrin 150mg BID + Remeron 15mg HS + Gabapentin 300mg TID. Mr. Falcon report medication compliance. Reports bringing medication to facility. At present reports difficulty sleeping and is requesting to restart medication. Physical/Sexual Abuse/Trauma History: denies. Psychiatric Findings - Problem List ([place] 1, 2,3) (1) Substance induced mood disorder Current Visit: Yes Status: Acute (2) Sedative, hypnotic or anxiolytic abuse, uncomplicated Current Visit: Yes Status: Acute (3) Alcohol dependence, uncomplicated Current Visit: Yes Status: Acute (4) Cocaine dependence Current Visit: Yes Status: Acute Qualifiers: Substance use status: uncomplicated Qualified Code(s): F14.20 - Cocaine dependence, uncomplicated (5) Methadone maintenance therapy patient Current Visit: Yes Status: Chronic (6) Substance-induced sleep disorder Current Visit: Yes Status: Acute - Initial Treatment Plan Initial Treatment Plan: Psychoeducation provided. Detoxification in progress. External medications reviewed and Wellbutrin not noted. No list of Wellbutrin listed on Home medications. Patient unsure of pharmacy where he filled prescription. Will order Wellbutrin 75mg BID @0900+1700 ( reduce dose) + Gabapentin 300mg TID + Remeron 15mg HS. Benefits and side effects discussed. Verbal consent given.
[2020-03-15] MEDS: GABAPENTIN 300 MG CAPSULE PO SCH ×2 (15:18→22:12)
--- NOTE | 2020-03-15 17:04 | PN ---
S CIWA - CIWA Score Nausea/Vomitin Muscle Tremors: 3 Anxiety: 4-Mod. Anxious/Guarded Agitation: 4-Moderately Restless Paroxysmal Sweats: No Perspiration Orientation: 0-Oriented Tacttile Disturbances: 0-None Auditory Disturbances: 0-None Visual Disturbances: 2-Mild Sensitivity Headache: 0-None Present CIWA-Ar Total Score: 16 BHS Progress Note (SOAP) Subjective: Tremors, Anxious, Nausea, Sensitivity to Light. Objective: Patient A & O X 3, Observed Ambulating on Detox Unit Unassisted. In No Acute Distress. 03/15/20 17:02 Vital Signs Temperature 97.7 F 03/15/20 13:09 Pulse Rate 72 03/15/20 13:09 Respiratory Rate 17 03/15/20 13:09 Blood Pressure 126/72 03/15/20 13:09 O2 Sat by Pulse Oximetry (%) 98 03/15/20 13:09 Laboratory Tests 03/15/20 07:45 Syphilis Serology Non-reactive Admission Lab Results noted. 03/15/20 17:02 Assessment: 03/15/20 17:03 WITHDRAWAL SYMPTOMS. Plan: Continue Detox. Increase Daily Oral Water Intake.
[2020-03-15] MEDS: buPROPion HCL 75 MG TABLET PO SCH (18:21)
[2020-03-15] MEDS: MIRTAZAPINE 15 MG TABLET (FP) PO SCH (22:12)
[2020-03-15] MEDS: THIAMINE HCL 100 MG TABLET (FP) PO SCH (22:12)
[2020-03-15] MEDS: MELATONIN 5 MG TABLETS PO SCH (22:53)
[2020-03-16] MEDS ORDERED: METHADONE HCL 10 MG TABLET ONE (04:39)
[2020-03-16] MEDS ORDERED: METHADONE HCL 40 MG DISPERSABLE TABLET ONE (04:40)
[2020-03-16] MEDS: GABAPENTIN 300 MG CAPSULE PO SCH ×3 (05:42→22:03)
[2020-03-16] MEDS: diazePAM 5 MG TABLET PO SCH ×2 (05:42→17:26)
[2020-03-16] MEDS: METHADONE 80 MG, METHADONE 20 MG PO SCH (05:43)
[2020-03-16] MEDS: NICOTINE POLACRILEX 2 MG GUM BUC PRN ×3 (05:46→17:42)
[2020-03-16] MEDS: diazePAM 5 MG TABLET PO PRN ×3 (07:49→19:45)
[2020-03-16] MEDS: PRENATAL VITAMINS W/ FOLIC ACID TABLET (FP) PO SCH (10:03)
[2020-03-16] MEDS: buPROPion HCL 75 MG TABLET PO SCH ×2 (10:03→17:26)
[2020-03-16] MEDS: NICOTINE 21 MG/24 HOURS TOPICAL PATCH TD SCH (10:04)
--- NOTE | 2020-03-16 16:01 | PN ---
S CIWA - CIWA Score Nausea/Vomitin-Mild Nausea/No Vomiting Muscle Tremors: 3 Anxiety: 3 Agitation: 2 Paroxysmal Sweats: 2 Orientation: 0-Oriented Tacttile Disturbances: 0-None Auditory Disturbances: 0-None Visual Disturbances: 0-None Headache: 0-None Present CIWA-Ar Total Score: 11 S Progress Note (SOAP) Subjective: Anxiety, tremor, sensitive to light, poor appetite, interrupted sleep Objective: 03/16/20 15:57 Last Vital Signs Temp Pulse Resp BP Pulse Ox 97.7 F 87 18 135/73 99 03/16/20 12:50 03/16/20 12:50 03/16/20 12:50 03/16/20 12:50 03/16/20 12:50 Elevated b/p: denies htn, most likely due to withdrawal Laboratory Tests 03/14/20 03/15/20 17:00 07:45 Syphilis Serology Non-reactive COVID-19 ([facility]) Not detected Admission labs reviewed (CBC/CMP) Assessment: 03/16/20 15:58 Withdrawal sxs Elevated b/p noted Plan: Continue detox Encouraged PO water hydration Elevated b/p: most likely due to withdrawal, monitor b/p Patient is for discharge tomorrow, consider holding discharge due to increased withdrawal sxs
[2020-03-16] MEDS: THIAMINE HCL 100 MG TABLET (FP) PO SCH (22:03)
[2020-03-16] MEDS: MIRTAZAPINE 15 MG TABLET (FP) PO SCH (22:03)
[2020-03-16] MEDS: MELATONIN 5 MG TABLETS PO SCH (22:03)
[2020-03-16] MEDS: IBUPROFEN 400 MG TABLET (FP) PO PRN (22:04)
[2020-03-17] MEDS ORDERED: METHADONE HCL 10 MG TABLET ONE (04:16)
[2020-03-17] MEDS ORDERED: METHADONE HCL 40 MG DISPERSABLE TABLET ONE (04:17)
[2020-03-17] MEDS: METHADONE 80 MG, METHADONE 20 MG PO SCH (05:54)
[2020-03-17] MEDS: GABAPENTIN 300 MG CAPSULE PO SCH (05:55)
[2020-03-17] MEDS ORDERED: diazePAM 5 MG TABLET PO ONE (06:00)
[2020-03-17] MEDS: NICOTINE POLACRILEX 2 MG GUM BUC PRN (06:01)
[2020-03-17 06:09] VITALS: BP 115/67; PULSE 68; TEMP 97.5
[2020-03-17] MEDS: diazePAM 5 MG TABLET PO PRN (08:39)
--- NOTE | 2020-03-17 10:11 | DS ---
[facility] Detox Discharge Summary Admission Date: 03/14/20 Discharge Date: 03/17/20 - History Present History: Alcohol Dependence, Cocaine Dependence, Sedative Dependence - Physical Exam Results Vital Signs: Vital Signs Temperature 97.5 F L 03/17/20 06:08 Pulse Rate 68 03/17/20 06:08 Respiratory Rate 18 03/17/20 06:08 Blood Pressure 115/67 03/17/20 06:08 O2 Sat by Pulse Oximetry (%) 96 03/17/20 06:08 Pertinent Admission Physical Exam Findings: Vital Signs Temperature 97.5 F L 03/17/20 06:08 Pulse Rate 68 03/17/20 06:08 Respiratory Rate 18 03/17/20 06:08 Blood Pressure 115/67 03/17/20 06:08 O2 Sat by Pulse Oximetry (%) 96 03/17/20 06:08 Laboratory Tests 03/14/20 03/15/20 17:00 07:45 Syphilis Serology Non-reactive COVID-19 ([facility]) Not detected aaox3 ambulating no acute distress lungs CTA - Treatment Hospital Course: Detox Protocol Followed, Detoxed Safely, Responded well, Discharged Condition Good, Rehab Referral Accepted Patient has Accepted a Rehab Referral to: referred to his [facility] - Medication Discharge Medications: Ambulatory Orders Methadone [Dolophine -] 100 mg PO DAILY@0600 tablet 03/14/20 - Diagnosis (1) Cocaine dependence Status: Chronic Qualifiers: Substance use status: uncomplicated Qualified Code(s): F14.20 - Cocaine dependence, uncomplicated (2) DVT prophylaxis Status: Suspected (3) Sedative, hypnotic or anxiolytic abuse, uncomplicated Status: Chronic (4) Substance induced mood disorder Status: Acute (5) Substance-induced sleep disorder Status: Acute (6) Anxiety disorder Status: Chronic Qualifiers: Anxiety disorder type: unspecified anxiety disorder Qualified Code(s): F 41.9 - Anxiety disorder, unspecified (7) Depression Status: Chronic Qualifiers: Depression Type: unspecified Qualified Code(s): F32.9 - Major depressive disorder, single episode, unspecified (8) Insomnia Status: Chronic (9) Methadone maintenance therapy patient Status: Chronic (10) Nicotine dependence Status: Chronic Qualifiers: Nicotine product type: cigarettes Substance use status: uncomplicated Qualified Code(s): F17.210 - Nicotine dependence, cigarettes, uncomplicated (11) Non-compliance Status: Chronic (12) Opioid dependence on agonist therapy Status: Chronic (13) Substance induced mood disorder Status: Chronic - AMA Did Patient Leave Against Medical Advice: No
== END 2020-03-17 09:09 | disposition home or self-care (01) | DRG 773 ==
LOC: YASAS 15:02 → Y6N 17:12
PROVIDERS: ADMIT Allergy & Immunology; ATTEND Allergy & Immunology
PROC: HZ2ZZZZ Detoxification Services for Substance Abuse Treatment (ICD-10-PCS; principal; 2020-03-14)
DX: F10.230 Alcohol dependence with withdrawal, uncomplicated (principal); F13.230 Sedative, hypnotic or anxiolytic dependence with withdrawal, uncomplicated; F11.20 Opioid dependence, uncomplicated; F14.20 Cocaine dependence, uncomplicated; F17.210 Nicotine dependence, cigarettes, uncomplicated; F19.24 Other psychoactive substance dependence with psychoactive substance-induced mood disorder; F19.282 Other psychoactive substance dependence with psychoactive substance-induced sleep disorder; F41.9 Anxiety disorder, unspecified; F32.9 Major depressive disorder, single episode, unspecified; G47.00 Insomnia, unspecified; R03.0 Elevated blood-pressure reading, without diagnosis of hypertension; Z88.8 Allergy status to other drugs, medicaments and biological substances; Z86.69 Personal history of other diseases of the nervous system and sense organs; Z91.14 Patient's other noncompliance with medication regimen
CPT/HCPCS: 86780; U0003

== ENCOUNTER 2023-02-22 20:13 | Inpatient (IN) | payer OTHER ==
[2023-02-22 22:12] VITALS: BMI 30.8
[2023-02-22] MEDS ORDERED: NICOTINE 7 MG/24 HOURS TOPICAL PATCH TD PRN (22:25)
[2023-02-22] MEDS ORDERED: P-EPHED 60MG/TRIPROLIDI 2.5MG TABLET PO PRN (22:25)
[2023-02-22] MEDS ORDERED: DICYCLOMINE HCL 10 MG CAPSULE PO PRN (22:25)
[2023-02-22] MEDS ORDERED: IBUPROFEN 600 MG TABLET (FP) PO PRN (22:25)
[2023-02-22] MEDS ORDERED: ACETAMINOPHEN 325 MG TABLET (FP) PO PRN (22:25)
[2023-02-22] MEDS ORDERED: LOPERAMIDE HCL 2 MG CAPSULE PO PRN (22:25)
[2023-02-22] MEDS ORDERED: IBUPROFEN 400 MG TABLET (FP) PO PRN (22:25)
[2023-02-22] MEDS ORDERED: NICOTINE 10 MG CARTRIDGE (INHALER) IH PRN (22:25)
[2023-02-22] MEDS ORDERED: MELATONIN 5 MG TABLETS PO PRN (22:25)
[2023-02-22] MEDS ORDERED: POLYETHYLENE GLYCOL (HEALTHYLAX) 3350 17 GM PACKET PO PRN (22:25)
[2023-02-22] MEDS ORDERED: BENZONATATE 200 MG CAPSULE PO PRN (22:25)
[2023-02-22] MEDS ORDERED: MAGNESIUM HYDROX 2400MG/30ML ORAL SUSPENSION 30 ML CUP PO PRN (22:25)
[2023-02-22] MEDS ORDERED: MAG HYDROX/AL HYDROX/SIMETH 30 ML UNIT-DOSE CUP PO PRN (22:25)
[2023-02-22] MEDS ORDERED: BENZOCAINE/MENTHOL (CHLORASEPTIC ) LOZENGE MM PRN (22:25)
[2023-02-22] MEDS ORDERED: NALOXONE HCL 0.4 MG/ML VIAL IM PRN (22:25)
[2023-02-22] MEDS ORDERED: guaiFENesin 600 MG TABLET.ER (FP) PO PRN (22:25)
[2023-02-22] MEDS ORDERED: BISMUTH SUBSALICYLATE 524 MG/30 ML PO PRN (22:25)
[2023-02-22] MEDS ORDERED: NALOXONE HCL (KLOXXADO) 8 MG SPRAY NS PRN (22:25)
[2023-02-22] MEDS ORDERED: ONDANSETRON *ODT* 4 MG TABLET SL PRN (22:25)
[2023-02-22] MEDS ORDERED: diphenhydrAMINE HCL 25 MG CAPSULE (FP) PO PRN (22:31)
[2023-02-22] MEDS ORDERED: levETIRAcetam 500 MG TABLET (FP) PO ONE (22:53)
[2023-02-22] MEDS ORDERED: diazePAM 5 MG TABLET ONE (22:53)
[2023-02-22] MEDS: levETIRAcetam 500 MG TABLET (FP) PO SCH (22:58)
[2023-02-22] MEDS: diazePAM 5 MG TABLET PO SCH (22:59)
[2023-02-23] MEDS ORDERED: diazePAM 5 MG TABLET PO ONE (07:45)
[2023-02-23] MEDS: diazePAM 5 MG TABLET PO SCH ×4 (07:45→22:10)
[2023-02-23] MEDS: methaDONE HCL 40 MG DISPERSABLE TABLET PO SCH (10:07)
[2023-02-23] MEDS: levETIRAcetam 500 MG TABLET (FP) PO SCH ×2 (10:08→22:10)
[2023-02-23] MEDS: PRENATAL VITAMINS W/ FOLIC ACID TABLET (FP) PO SCH (10:08)
[2023-02-23] MEDS: hydrOXYzine PAMOATE 25 MG CAPSULE (FP) PO PRN (10:08)
[2023-02-23] MEDS: METHOCARBAMOL 500 MG TABLET PO PRN (10:08)
[2023-02-23] MEDS: NICOTINE POLACRILEX 2 MG GUM BUC PRN ×3 (10:35→22:14)
[2023-02-23 11:34] LABS: HEMATOCRIT 33.9 % (35.4-49); HEMOGLOBIN 11.6 GM/dL (11.7-16.9); MCH 28.4 pg (25.7-33.7); MCHC 34.2 g/dl (32.0-35.9); MEAN CELL VOLUME 83.1 fl (80-96); MEAN PLT VOLUME 7.4 fl (7.5-11.1); PLATELET COUNT 314 10^3/uL (134-434); RBC 4.07 M/mm3 (4.00-5.60); RDW 12.4 % (11.9-15.9)
[2023-02-23] MEDS: GABAPENTIN 400 MG CAPSULE PO SCH ×2 (13:04→22:10)
[2023-02-23] MEDS: cloNIDine HCL 0.1 MG TABLET PO SCH ×2 (13:32→22:12)
[2023-02-23 13:39] LABS: POTASSIUM 4.4 mmol/L (3.5-5.1)
[2023-02-23 13:45] LABS: CALCIUM 9.1 mg/dL (8.5-10.1)
[2023-02-23 13:46] LABS: ALBUMIN 3.4 g/dl (3.4-5.0); BLOOD UREA NITROGEN 9.4 mg/dL (7-18)
[2023-02-23 13:48] LABS: CREATININE 0.9 mg/dL (0.55-1.3)
[2023-02-23 13:50] LABS: TOT PROT 7.5 g/dl (6.4-8.2)
[2023-02-23 13:51] LABS: BILIRUBIN,TOTAL 0.4 mg/dL (0.2-1)
[2023-02-23 14:37] LABS: HIV INTERPRETATION NEGATIVE (NEGATIVE)
[2023-02-23] MEDS ORDERED: AMITRIPTYLINE HCL 100 MG TABLET PO SCH (22:00)
[2023-02-23] MEDS: THIAMINE HCL 100 MG TABLET (FP) PO SCH (22:10)
[2023-02-23] MEDS: MIRTAZAPINE 15 MG TABLET (FP) PO SCH (22:11)
[2023-02-23] MEDS: AMITRIPTYLINE HCL 25 MG TABLET PO SCH (23:46)
[2023-02-24] MEDS: GABAPENTIN 400 MG CAPSULE PO SCH ×3 (05:49→22:02)
[2023-02-24] MEDS: cloNIDine HCL 0.1 MG TABLET PO SCH ×3 (05:49→22:02)
[2023-02-24] MEDS: methaDONE HCL 40 MG DISPERSABLE TABLET PO SCH (05:49)
[2023-02-24] MEDS: diazePAM 5 MG TABLET PO SCH ×3 (05:49→22:05)
[2023-02-24] MEDS: NICOTINE POLACRILEX 2 MG GUM BUC PRN ×4 (05:52→13:03)
[2023-02-24] MEDS: PRENATAL VITAMINS W/ FOLIC ACID TABLET (FP) PO SCH (10:05)
[2023-02-24] MEDS: levETIRAcetam 500 MG TABLET (FP) PO SCH ×2 (10:05→22:04)
[2023-02-24] MEDS: METHOCARBAMOL 500 MG TABLET PO PRN (10:05)
[2023-02-24] MEDS: hydrOXYzine PAMOATE 25 MG CAPSULE (FP) PO PRN (10:06)
[2023-02-24] MEDS: THIAMINE HCL 100 MG TABLET (FP) PO SCH (22:03)
[2023-02-24] MEDS: AMITRIPTYLINE HCL 25 MG TABLET PO SCH (22:03)
[2023-02-24] MEDS: MIRTAZAPINE 15 MG TABLET (FP) PO SCH (22:04)
[2023-02-25] MEDS: methaDONE HCL 40 MG DISPERSABLE TABLET PO SCH (05:43)
[2023-02-25] MEDS: diazePAM 5 MG TABLET PO SCH ×2 (05:44→18:30)
[2023-02-25] MEDS: GABAPENTIN 400 MG CAPSULE PO SCH ×3 (05:44→22:11)
[2023-02-25] MEDS: cloNIDine HCL 0.1 MG TABLET PO SCH ×3 (05:44→22:11)
[2023-02-25] MEDS: NICOTINE POLACRILEX 2 MG GUM BUC PRN ×3 (06:10→20:24)
[2023-02-25] MEDS: diazePAM 5 MG TABLET PO PRN ×2 (10:27→20:23)
[2023-02-25] MEDS: PRENATAL VITAMINS W/ FOLIC ACID TABLET (FP) PO SCH (10:27)
[2023-02-25] MEDS: levETIRAcetam 500 MG TABLET (FP) PO SCH ×2 (10:28→22:11)
[2023-02-25] MEDS: hydrOXYzine PAMOATE 25 MG CAPSULE (FP) PO PRN (10:28)
[2023-02-25] MEDS: METHOCARBAMOL 500 MG TABLET PO PRN (10:28)
[2023-02-25] MEDS ORDERED: AMITRIPTYLINE HCL 100 MG TABLET PO SCH (22:00)
[2023-02-25] MEDS: THIAMINE HCL 100 MG TABLET (FP) PO SCH (22:11)
[2023-02-25] MEDS: MIRTAZAPINE 15 MG TABLET (FP) PO SCH (22:11)
[2023-02-26] MEDS: methaDONE HCL 40 MG DISPERSABLE TABLET PO SCH (05:44)
[2023-02-26] MEDS: GABAPENTIN 400 MG CAPSULE PO SCH (05:55)
[2023-02-26] MEDS: cloNIDine HCL 0.1 MG TABLET PO SCH (05:56)
[2023-02-26] MEDS ORDERED: diazePAM 5 MG TABLET PO ONE (06:00)
[2023-02-26 09:42] VITALS: BP 129/73; PULSE 78; RESP 18; TEMP 97.5
[2023-02-26] MEDS: levETIRAcetam 500 MG TABLET (FP) PO SCH (09:54)
[2023-02-26] MEDS: PRENATAL VITAMINS W/ FOLIC ACID TABLET (FP) PO SCH (09:54)
== END 2023-02-26 12:00 | disposition other institution (70) | DRG 773 ==
LOC: YASAS 20:13 → Y6N 02-23 00:12
PROVIDERS: ADMIT Allergy & Immunology; ATTEND Surgery
PROC: HZ2ZZZZ Detoxification Services for Substance Abuse Treatment (ICD-10-PCS; principal; 2023-02-23)
DX: F13.230 Sedative, hypnotic or anxiolytic dependence with withdrawal, uncomplicated (principal); F11.20 Opioid dependence, uncomplicated; F17.210 Nicotine dependence, cigarettes, uncomplicated; F19.282 Other psychoactive substance dependence with psychoactive substance-induced sleep disorder; F19.24 Other psychoactive substance dependence with psychoactive substance-induced mood disorder; Z56.0 Unemployment, unspecified; Z59.02 Unsheltered homelessness; Z88.8 Allergy status to other drugs, medicaments and biological substances
CPT/HCPCS: 36415; 80053; 85027; 86780; 87389; 87635; 93005; 93010

== ENCOUNTER 2023-06-18 11:59 | Inpatient (IN) | payer OTHER ==
[2023-06-18 13:13] VITALS: BMI 32.0
[2023-06-18] MEDS ORDERED: LOPERAMIDE HCL 2 MG CAPSULE PO PRN (14:21)
[2023-06-18] MEDS ORDERED: BENZOCAINE/MENTHOL (CHLORASEPTIC ) LOZENGE MM PRN (14:21)
[2023-06-18] MEDS ORDERED: BISMUTH SUBSALICYLATE 524 MG/30 ML PO PRN (14:21)
[2023-06-18] MEDS ORDERED: NALOXONE HCL 0.4 MG/ML VIAL IM PRN (14:21)
[2023-06-18] MEDS ORDERED: BENZONATATE 200 MG CAPSULE PO PRN (14:21)
[2023-06-18] MEDS ORDERED: ACETAMINOPHEN 325 MG TABLET (FP) PO PRN (14:21)
[2023-06-18] MEDS ORDERED: NALOXONE HCL (KLOXXADO) 8 MG SPRAY NS PRN (14:21)
[2023-06-18] MEDS ORDERED: MAGNESIUM HYDROX 2400MG/30ML ORAL SUSPENSION 30 ML CUP PO PRN (14:21)
[2023-06-18] MEDS ORDERED: MAG HYDROX/AL HYDROX/SIMETH 30 ML UNIT-DOSE CUP PO PRN (14:21)
[2023-06-18] MEDS ORDERED: DICYCLOMINE HCL 10 MG CAPSULE PO PRN (14:21)
[2023-06-18] MEDS ORDERED: POLYETHYLENE GLYCOL (HEALTHYLAX) 3350 17 GM PACKET PO PRN (14:21)
[2023-06-18] MEDS ORDERED: ONDANSETRON *ODT* 4 MG TABLET SL PRN (14:21)
[2023-06-18] MEDS ORDERED: guaiFENesin 600 MG TABLET.ER (FP) PO PRN (14:21)
[2023-06-18] MEDS: NICOTINE POLACRILEX 4 MG GUM BUC PRN (18:06)
[2023-06-18] MEDS ORDERED: MELATONIN 5 MG TABLETS PO SCH (22:00)
[2023-06-18] MEDS: THIAMINE HCL 100 MG TABLET (FP) PO SCH (22:06)
[2023-06-18] MEDS: diazePAM 5 MG TABLET PO SCH (22:07)
[2023-06-18] MEDS: METHOCARBAMOL 500 MG TABLET PO PRN (22:09)
[2023-06-18] MEDS: hydrOXYzine PAMOATE 25 MG CAPSULE (FP) PO PRN (22:09)
[2023-06-19] MEDS: diazePAM 5 MG TABLET PO PRN ×3 (01:32→20:20)
[2023-06-19] MEDS: diazePAM 5 MG TABLET PO SCH ×4 (05:39→22:10)
[2023-06-19] MEDS: NICOTINE POLACRILEX 4 MG GUM BUC PRN ×4 (05:43→22:27)
[2023-06-19] MEDS ORDERED: methaDONE HCL 10 MG TABLET PO ONE (06:00)
[2023-06-19] MEDS: IBUPROFEN 600 MG TABLET (FP) PO PRN (09:15)
[2023-06-19] MEDS: PRENATAL VITAMINS W/ FOLIC ACID TABLET (FP) PO SCH (09:16)
[2023-06-19] MEDS: GABAPENTIN 400 MG CAPSULE PO SCH ×2 (13:19→22:13)
[2023-06-19] MEDS: cloNIDine HCL 0.1 MG TABLET PO PRN (15:32)
[2023-06-19] MEDS ORDERED: AMITRIPTYLINE HCL 75 MG TABLET PO SCH (22:00)
[2023-06-19] MEDS: THIAMINE HCL 100 MG TABLET (FP) PO SCH (22:09)
[2023-06-19] MEDS: MIRTAZAPINE 15 MG TABLET (FP) PO SCH (22:13)
[2023-06-19] MEDS: IBUPROFEN 400 MG TABLET (FP) PO PRN (22:26)
[2023-06-20] MEDS: diazePAM 5 MG TABLET PO PRN ×4 (02:30→20:25)
[2023-06-20] MEDS: GABAPENTIN 400 MG CAPSULE PO SCH ×3 (05:26→22:07)
[2023-06-20] MEDS: diazePAM 5 MG TABLET PO SCH ×3 (05:27→22:07)
[2023-06-20] MEDS: cloNIDine HCL 0.1 MG TABLET PO PRN ×2 (06:24→22:08)
[2023-06-20] MEDS ORDERED: methaDONE HCL 10 MG TABLET PO SCH (09:15)
[2023-06-20] MEDS: NICOTINE POLACRILEX 4 MG GUM BUC PRN ×2 (09:21→20:27)
[2023-06-20] MEDS: PRENATAL VITAMINS W/ FOLIC ACID TABLET (FP) PO SCH (10:16)
[2023-06-20 10:18] LABS: BASO % 0.5 % (0-2.0); EOS % 5.1 % (0-4.5); HEMATOCRIT 35.7 % (35.4-49); HEMOGLOBIN 12.6 GM/dL (11.7-16.9); LYMPH % 36.9 % (8-40); MCH 28.7 pg (25.7-33.7); MCHC 35.2 g/dl (32.0-35.9); MEAN CELL VOLUME 81.5 fl (80-96); MEAN PLT VOLUME 7.6 fl (7.5-11.1); MONO % 11.2 % (3.8-10.2); NEUT % 46.3 % (42.8-82.8); PLATELET COUNT 241 10^3/uL (134-434); RBC 4.39 M/mm3 (4.00-5.60); WHITE BLOOD COUNT 5.2 K/mm3 (4.0-10.0)
[2023-06-20 10:24] LABS: POTASSIUM 4.1 mmol/L (3.5-5.1)
[2023-06-20 10:41] LABS: ALBUMIN 3.4 g/dl (3.4-5.0); CALCIUM 8.8 mg/dL (8.5-10.1)
[2023-06-20 10:42] LABS: BLOOD UREA NITROGEN 14.4 mg/dL (7-18)
[2023-06-20 10:44] LABS: CREATININE 0.9 mg/dL (0.55-1.3)
[2023-06-20] MEDS: IBUPROFEN 600 MG TABLET (FP) PO PRN (10:44)
[2023-06-20 10:46] LABS: BILIRUBIN,TOTAL 0.4 mg/dL (0.2-1); TOT PROT 7.4 g/dl (6.4-8.2)
[2023-06-20] MEDS: IBUPROFEN 400 MG TABLET (FP) PO PRN (20:32)
[2023-06-20] MEDS: MIRTAZAPINE 15 MG TABLET (FP) PO SCH (22:06)
[2023-06-20] MEDS: AMITRIPTYLINE HCL 25 MG TABLET PO SCH (22:06)
[2023-06-20] MEDS: THIAMINE HCL 100 MG TABLET (FP) PO SCH (22:07)
[2023-06-21] MEDS: diazePAM 5 MG TABLET PO PRN ×3 (01:27→14:31)
[2023-06-21] MEDS: diazePAM 5 MG TABLET PO SCH ×2 (05:56→17:32)
[2023-06-21] MEDS: GABAPENTIN 400 MG CAPSULE PO SCH ×3 (05:56→22:14)
[2023-06-21] MEDS: IBUPROFEN 600 MG TABLET (FP) PO PRN ×2 (06:26→20:03)
[2023-06-21] MEDS: PRENATAL VITAMINS W/ FOLIC ACID TABLET (FP) PO SCH (09:17)
[2023-06-21] MEDS: cloNIDine HCL 0.1 MG TABLET PO PRN ×2 (09:19→20:54)
[2023-06-21] MEDS: NICOTINE POLACRILEX 4 MG GUM BUC PRN ×2 (09:20→22:17)
[2023-06-21] MEDS ORDERED: BENZOCAINE 20 % GEL TUBE MM PRN (20:16)
[2023-06-21] MEDS: METHOCARBAMOL 500 MG TABLET PO PRN (20:54)
[2023-06-21] MEDS: hydrOXYzine PAMOATE 25 MG CAPSULE (FP) PO PRN (20:54)
[2023-06-21] MEDS: AMITRIPTYLINE HCL 25 MG TABLET PO SCH (22:14)
[2023-06-21] MEDS: MIRTAZAPINE 15 MG TABLET (FP) PO SCH (22:15)
[2023-06-21] MEDS: THIAMINE HCL 100 MG TABLET (FP) PO SCH (22:15)
[2023-06-22] MEDS ORDERED: diazePAM 5 MG TABLET PO ONE (06:00)
[2023-06-22] MEDS: GABAPENTIN 400 MG CAPSULE PO SCH ×2 (06:01→13:37)
[2023-06-22] MEDS: hydrOXYzine PAMOATE 25 MG CAPSULE (FP) PO PRN (08:53)
[2023-06-22] MEDS: cloNIDine HCL 0.1 MG TABLET PO PRN (08:53)
[2023-06-22 10:14] LABS: POTASSIUM 4.6 mmol/L (3.5-5.1)
[2023-06-22] MEDS: PRENATAL VITAMINS W/ FOLIC ACID TABLET (FP) PO SCH (10:16)
[2023-06-22 10:19] LABS: BLOOD UREA NITROGEN 13.2 mg/dL (7-18); CALCIUM 8.9 mg/dL (8.5-10.1)
[2023-06-22 10:29] LABS: CREATININE 0.8 mg/dL (0.55-1.3)
[2023-06-22 12:34] VITALS: BP 114/68; PULSE 78; RESP 17; TEMP 97.6
== END 2023-06-22 01:50 | disposition other institution (70) | DRG 773 ==
LOC: YASAS 11:59 → UNDOADMIN 16:38 → Y3N 16:38
PROVIDERS: ADMIT Allergy & Immunology; ATTEND Surgery
PROC: HZ2ZZZZ Detoxification Services for Substance Abuse Treatment (ICD-10-PCS; principal; 2023-06-18)
DX: F10.230 Alcohol dependence with withdrawal, uncomplicated (principal); F13.230 Sedative, hypnotic or anxiolytic dependence with withdrawal, uncomplicated; F14.20 Cocaine dependence, uncomplicated; F11.20 Opioid dependence, uncomplicated; F17.210 Nicotine dependence, cigarettes, uncomplicated; F19.280 Other psychoactive substance dependence with psychoactive substance-induced anxiety disorder; F19.282 Other psychoactive substance dependence with psychoactive substance-induced sleep disorder; F19.24 Other psychoactive substance dependence with psychoactive substance-induced mood disorder; R74.01 Elevation of levels of liver transaminase levels; Z88.8 Allergy status to other drugs, medicaments and biological substances; Z86.69 Personal history of other diseases of the nervous system and sense organs
CPT/HCPCS: 36415; 80048; 80053; 85025; 87635

== ENCOUNTER 2024-01-06 14:26 | Inpatient (IN) | payer OTHER ==
[2024-01-06 15:06] VITALS: BMI 34.8
[2024-01-06] MEDS ORDERED: POLYETHYLENE GLYCOL (HEALTHYLAX) 3350 17 GM PACKET PO PRN (17:19)
[2024-01-06] MEDS ORDERED: MAGNESIUM HYDROX 2400MG/30ML ORAL SUSPENSION 30 ML CUP PO PRN (17:19)
[2024-01-06] MEDS ORDERED: guaiFENesin 600 MG TABLET.ER (FP) PO PRN (17:19)
[2024-01-06] MEDS ORDERED: DICYCLOMINE HCL 10 MG CAPSULE PO PRN (17:19)
[2024-01-06] MEDS ORDERED: ACETAMINOPHEN 325 MG TABLET (FP) PO PRN (17:19)
[2024-01-06] MEDS ORDERED: BISMUTH SUBSALICYLATE 524 MG/30 ML PO PRN (17:19)
[2024-01-06] MEDS ORDERED: MAG HYDROX/AL HYDROX/SIMETH 30 ML UNIT-DOSE CUP PO PRN (17:19)
[2024-01-06] MEDS ORDERED: IBUPROFEN 400 MG TABLET (FP) PO PRN (17:19)
[2024-01-06] MEDS ORDERED: BENZOCAINE/MENTHOL (CHLORASEPTIC ) LOZENGE MM PRN (17:19)
[2024-01-06] MEDS ORDERED: BENZONATATE 200 MG CAPSULE PO PRN (17:19)
[2024-01-06] MEDS ORDERED: LOPERAMIDE HCL 2 MG CAPSULE PO PRN (17:19)
[2024-01-06] MEDS ORDERED: NALOXONE HCL 0.4 MG/ML VIAL IM PRN (17:19)
[2024-01-06] MEDS ORDERED: NALOXONE HCL (KLOXXADO) 8 MG SPRAY NS PRN (17:19)
[2024-01-06] MEDS ORDERED: ONDANSETRON *ODT* 4 MG TABLET SL PRN (17:19)
[2024-01-06] MEDS: NICOTINE POLACRILEX 2 MG LOZENGE BC PRN (19:46)
[2024-01-06] MEDS: MELATONIN 5 MG TABLETS PO SCH (22:37)
[2024-01-06] MEDS: THIAMINE 100 MG TABLET PO SCH (22:37)
[2024-01-06] MEDS: METHOCARBAMOL 500 MG TABLET PO PRN (22:37)
[2024-01-06] MEDS: IBUPROFEN 600 MG TABLET (FP) PO PRN (22:39)
[2024-01-07] MEDS ORDERED: diazePAM 5 MG TABLET PO PRN (10:11)
[2024-01-07] MEDS: PRENATAL VITAMINS W/ FOLIC ACID TABLET (FP) PO SCH (10:43)
[2024-01-07] MEDS: diazePAM 5 MG TABLET PO SCH (11:09)
[2024-01-07] MEDS: methaDONE HCL 10 MG TABLET PO SCH (11:10)
[2024-01-07] MEDS: diazePAM 5 MG TABLET PO PRN (13:49)
[2024-01-07] MEDS: cloNIDine HCL 0.1 MG TABLET PO ONE (15:51)
[2024-01-07] MEDS ORDERED: MIRTAZAPINE 15 MG TABLET (FP) PO SCH (22:00)
[2024-01-07] MEDS ORDERED: cloNIDine HCL 0.1 MG TABLET PO SCH (22:00)
[2024-01-07] MEDS: MIRTAZAPINE 15 MG TABLET (FP) PO SCH (22:24)
[2024-01-07] MEDS: GABAPENTIN 100 MG CAPSULE PO SCH (22:24)
[2024-01-07] MEDS: cloNIDine HCL 0.1 MG TABLET PO SCH (22:24)
[2024-01-07] MEDS: hydrOXYzine PAMOATE 25 MG CAPSULE (FP) PO PRN (22:30)
[2024-01-07] MEDS: AMITRIPTYLINE HCL 25 MG TABLET PO SCH (22:32)
[2024-01-08] MEDS: diazePAM 5 MG TABLET PO SCH (06:03)
[2024-01-09] MEDS: diazePAM 5 MG TABLET PO SCH (05:55)
[2024-01-09] MEDS: diazePAM 5 MG TABLET PO PRN (12:05)
[2024-01-09 17:26] VITALS: RESP 18
[2024-01-10] MEDS: diazePAM 5 MG TABLET PO ONE (05:52)
[2024-01-10 13:31] VITALS: BP 104/69; PULSE 84; TEMP 98.4
== END 2024-01-10 15:28 | disposition other institution (70) | DRG 773 ==
LOC: YASAS 14:26 → Y6N 17:24 → UNDOADMIN 17:24 → Y6N 17:48 → UNDODISIN 01-10 15:28
PROVIDERS: ADMIT Allergy & Immunology; ATTEND Surgery
PROC: HZ2ZZZZ Detoxification Services for Substance Abuse Treatment (ICD-10-PCS; principal; 2024-01-06)
DX: F10.230 Alcohol dependence with withdrawal, uncomplicated (principal); F11.20 Opioid dependence, uncomplicated; F14.20 Cocaine dependence, uncomplicated; F13.20 Sedative, hypnotic or anxiolytic dependence, uncomplicated; F17.210 Nicotine dependence, cigarettes, uncomplicated; F19.280 Other psychoactive substance dependence with psychoactive substance-induced anxiety disorder; F19.282 Other psychoactive substance dependence with psychoactive substance-induced sleep disorder; F41.1 Generalized anxiety disorder; F32.9 Major depressive disorder, single episode, unspecified; I10 Essential (primary) hypertension; Z28.310 Unvaccinated for COVID-19; Z28.21 Immunization not carried out because of patient refusal; Z88.8 Allergy status to other drugs, medicaments and biological substances
CPT/HCPCS: 87811; 93005; 93010

== ENCOUNTER 2024-01-10 15:34 | Inpatient (IN) | payer OTHER ==
[2024-01-10] MEDS ORDERED: LOPERAMIDE HCL 2 MG CAPSULE PO PRN (16:00)
[2024-01-10] MEDS ORDERED: ACETAMINOPHEN 325 MG TABLET (FP) PO PRN (16:00)
[2024-01-10] MEDS ORDERED: hydrOXYzine PAMOATE 25 MG CAPSULE (FP) PO PRN (16:00)
[2024-01-10] MEDS ORDERED: NALOXONE (NYS OPIOID OVERDOSE PROGRAM) 4 MG/0.1 ML SPRAY NS PRN (16:00)
[2024-01-10] MEDS ORDERED: BENZOCAINE/MENTHOL (CHLORASEPTIC ) LOZENGE MM PRN (16:00)
[2024-01-10] MEDS ORDERED: POLYETHYLENE GLYCOL (HEALTHYLAX) 3350 17 GM PACKET PO PRN (16:00)
[2024-01-10] MEDS ORDERED: MAGNESIUM HYDROX 2400MG/30ML ORAL SUSPENSION 30 ML CUP PO PRN (16:00)
[2024-01-10] MEDS ORDERED: NALOXONE HCL 0.4 MG/ML VIAL IVPUSH PRN (16:00)
[2024-01-10] MEDS ORDERED: BENZONATATE 200 MG CAPSULE PO PRN (16:00)
[2024-01-10] MEDS ORDERED: MAG HYDROX/AL HYDROX/SIMETH 30 ML UNIT-DOSE CUP PO PRN (16:00)
[2024-01-10] MEDS ORDERED: guaiFENesin 600 MG TABLET.ER (FP) PO PRN (16:00)
[2024-01-10] MEDS: MIRTAZAPINE 15 MG TABLET (FP) PO SCH (21:39)
[2024-01-10] MEDS: METHYL SALICYLATE/MENTHOL OINT 30 GM TUBE TP SCH (21:40)
[2024-01-10] MEDS: MELATONIN 5 MG TABLETS PO SCH (21:40)
[2024-01-10] MEDS: cloNIDine HCL 0.1 MG TABLET PO SCH (21:40)
[2024-01-10] MEDS: AMITRIPTYLINE HCL 25 MG TABLET PO SCH (21:40)
[2024-01-10] MEDS: GABAPENTIN 100 MG CAPSULE PO SCH (21:40)
[2024-01-10] MEDS: THIAMINE 100 MG TABLET PO SCH (21:40)
[2024-01-10] MEDS: METHOCARBAMOL 500 MG TABLET PO PRN (21:40)
[2024-01-11] MEDS ORDERED: methaDONE HCL 10 MG TABLET PO SCH (06:00)
[2024-01-11] MEDS ORDERED: NICOTINE POLACRILEX 4 MG GUM BUC PRN (09:55)
[2024-01-11] MEDS: PRENATAL VITAMINS W/ FOLIC ACID TABLET (FP) PO SCH (10:26)
[2024-01-11] MEDS: NICOTINE POLACRILEX 4 MG LOZENGE BC PRN (11:11)
[2024-01-11 11:24] LABS: POTASSIUM 4.2 mmol/L (3.5-5.1)
[2024-01-11 11:28] LABS: CALCIUM 9.4 mg/dL (8.5-10.1); INR 1.04 (0.83-1.09); PROTHROMBIN TIME (PATIENT) 12.1 SEC (9.7-13.0)
[2024-01-11 11:30] LABS: BLOOD UREA NITROGEN 16.4 mg/dL (7-18)
[2024-01-11 11:31] LABS: BILIRUBIN,TOTAL 0.4 mg/dL (0.2-1)
[2024-01-11 11:32] LABS: ALBUMIN 3.7 g/dl (3.4-5.0)
[2024-01-11 11:33] LABS: CREATININE 0.8 mg/dL (0.55-1.3)
[2024-01-11] MEDS: clonazePAM 0.5 MG ODT TABLETS SL SCH (21:36)
[2024-01-12] MEDS: AMITRIPTYLINE HCL 100 MG TABLET PO SCH (21:35)
[2024-01-13] MEDS: CHOLECALCIFEROL (VIT D3) 400 UNIT (10 MCG) TABLET PO SCH (09:34)
[2024-01-13] MEDS: BACLOFEN 10 MG TABLET (FP) PO SCH (21:38)
[2024-01-14] MEDS: GABAPENTIN 100 MG CAPSULE PO SCH (13:15)
[2024-01-14] MEDS: GABAPENTIN 300 MG CAPSULE PO SCH (13:24)
[2024-01-14] MEDS: clonazePAM 0.5 MG ODT TABLETS SL SCH (21:53)
[2024-01-17] MEDS: IBUPROFEN 600 MG TABLET (FP) PO PRN (12:38)
[2024-01-17] MEDS: clonazePAM 1 MG ODT TABLETS SL SCH (21:29)
[2024-01-20] MEDS: IBUPROFEN 400 MG TABLET (FP) PO PRN (06:17)
[2024-01-21] MEDS: clonazePAM 1 MG ODT TABLETS SL ONE (22:47)
[2024-01-22] MEDS: clonazePAM 1 MG ODT TABLETS SL ONE (11:42)
[2024-01-22] MEDS: clonazePAM 1 MG ODT TABLETS SL SCH (21:56)
[2024-01-23] MEDS: clonazePAM 0.5 MG ODT TABLETS SL SCH (06:44)
[2024-01-29] MEDS: clonazePAM 1 MG ODT TABLETS SL SCH (21:34)
[2024-01-31 20:51] VITALS: RESP 18
[2024-02-05] MEDS: clonazePAM 1 MG ODT TABLETS SL SCH (21:07)
[2024-02-07 07:30] VITALS: TEMP 97.2
[2024-02-07 11:35] VITALS: BP 154/78; PULSE 97
== END 2024-02-07 11:37 | disposition home or self-care (01) | DRG 772 ==
LOC: YASAS 15:34 → Y5N 15:36
PROVIDERS: ADMIT Allergy & Immunology; ATTEND Psychiatry & Neurology Pain Medicine
PROC: HZ42ZZZ Group Counseling for Substance Abuse Treatment, Cognitive-Behavioral (ICD-10-PCS; principal; 2024-01-10)
DX: F14.20 Cocaine dependence, uncomplicated (principal); F11.20 Opioid dependence, uncomplicated; F10.20 Alcohol dependence, uncomplicated; F13.20 Sedative, hypnotic or anxiolytic dependence, uncomplicated; F17.210 Nicotine dependence, cigarettes, uncomplicated; F41.9 Anxiety disorder, unspecified; F32.9 Major depressive disorder, single episode, unspecified; I10 Essential (primary) hypertension; Z88.8 Allergy status to other drugs, medicaments and biological substances; Z59.00 Homelessness unspecified
CPT/HCPCS: 36415; 80053; 80305; 82140; 82306; 85610; 86803; 87522; J0475